=== PATIENT | female | born 1950 | race Caucasian/White ===

== ENCOUNTER 2020-06-10 22:21 | Emergency (ER) | payer OTHER, MEDICARE ==
[~2020-06-10] VITALS: Ht 157.5 cm; Wt 75.0 kg
[2020-06-10 22:23] VITALS: BP 162/85
[2020-06-10] MEDS ORDERED: LIDOCAINE 1%-EPI 1:100K, 20ML ONE (22:38)
[2020-06-10] MEDS ORDERED: DIPH,PERTUSS(ACELL),TET VAC/PF 0.5 ML IM-VACC ONE ×2 (22:54→23:00)
[2020-06-10] MEDS ORDERED: PLEASE ENTER ALLERGIES MC SCH (23:00)
== END 2020-06-11 00:52 | disposition home or self-care (01) ==
LOC: ED 06-11 00:19
DX: S01.81XA Laceration without foreign body of other part of head, initial encounter (principal); I10 Essential (primary) hypertension; E78.5 Hyperlipidemia, unspecified; W01.0XXA Fall on same level from slipping, tripping and stumbling without subsequent striking against object, initial encounter; Y93.89 Activity, other specified; Y92.59 Other trade areas as the place of occurrence of the external cause; Y99.8 Other external cause status
CPT/HCPCS: 12011; 70250; 90471; 90715; 99283